=== PATIENT | male | born 1955 | race Caucasian/White ===

== ENCOUNTER → 2017-10-31 | Outpatient (CLI) | payer OTHER | LOC: BMCIMAGING 12:04 | PROVIDERS: ATTEND Emergency Medicine | DX: I82.431 Acute embolism and thrombosis of right popliteal vein (principal); I82.441 Acute embolism and thrombosis of right tibial vein ==

== ENCOUNTER → 2018-03-13 | Outpatient (CLI) | payer OTHER | LOC: FIMAGING 12:43 | PROVIDERS: ATTEND Internal Medicine | DX: M79.661 Pain in right lower leg (principal); M79.89 Other specified soft tissue disorders ==

== ENCOUNTER → 2018-03-23 | Outpatient (CLI) | payer OTHER | LOC: FIMAGING 12:30 | PROVIDERS: ATTEND Internal Medicine | DX: I82.431 Acute embolism and thrombosis of right popliteal vein (principal) ==

== ENCOUNTER → 2018-06-19 | Outpatient (CLI) | payer OTHER | LOC: FIMAGING 11:09 | PROVIDERS: ATTEND Internal Medicine | DX: I82.431 Acute embolism and thrombosis of right popliteal vein (principal) ==

== ENCOUNTER 2018-10-28 12:12 | Emergency (ER) | payer OTHER ==
[2018-10-28] MEDS ORDERED: NS 1,000 ML IV ONE (13:06)
--- NOTE | 2018-10-28 13:06 | EDPHY ---
H & P Stated Complaint: since sat, pt very fatigued, weak, photophobia, jackson Time Seen by Provider: 10/28/18 12:49 HPI/ROS: CHIEF COMPLAINT: Fatigued HISTORY OF PRESENT ILLNESS: The patient is a 63-year-old healthy man with no significant past medical history who comes to the emergency department complaining of fatigue for the last 3 days. He states that he had been doing well and feeling normal until Friday afternoon when he was having a beer with his son and he instantly felt extremely fatigued. He has slept almost constantly for the last 3 days except for 6 hr that he has been awake. He states that this is very unusual for him. He does have a lot of stress at work but nothing new. No history of depression. No recent medication changes. No history of thyroid abnormalities. No other substances. He denies feeling weak or paresthesias or focal deficits. No slurred speech. Just generally fatigued. He also complains of a mild diffuse headache that was gradual in onset Friday night in has persisted. No pain in his teeth or jaw. No runny nose sore throat etc. No ear pain or hearing changes. He does have mild photophobia and is wearing sunglasses. He is on his last day of Augmentin for a stye to his left lower eyelid that has almost completely resolved. He denies chest pain or shortness of breath. He did have a preventative examination with Cardiology 6 months ago and had a coronary CT angiogram that was unremarkable. Severity: Moderate Modifying factors: None REVIEW OF SYSTEMS: Constitutional: denies: chills, fever, recent illness, recent injury EENTM: denies: blurred vision, double vision, nose congestion Respiratory: denies: cough, shortness of breath Cardiac: denies: chest pain, irregular heart rate, lightheadedness, palpitations Gastrointestinal/Abdominal: denies: abdominal pain, diarrhea, nausea, vomiting, blood streaked stools Genitourinary: denies: dysuria, frequency, hematuria, pain Musculoskeletal: denies: joint pain, muscle pain Skin: denies: lesions, rash, jaundice, bruising Neurological: denies: headache, numbness, paresthesia, tingling, dizziness, weakness Hematologic/Lymphatic: denies: blood clots, easy bleeding, easy bruising Immunologic/allergic: denies: HIV/AIDS, transplant 10 systems reviewed and negative except as noted EXAM: GENERAL: Well-appearing, well-nourished and in no acute distress. HEAD: Atraumatic, normocephalic. EYES: Pupils equal round and reactive to light, extraocular movements intact, sclera anicteric, conjunctiva are normal. ENT: TMs normal, nares patent, oropharynx clear without exudates. Moist mucous membranes. Darci-Pen measurements 21 on the left 20 on the right. NECK: Normal range of motion, supple without lymphadenopathy or JVD. LUNGS: Breath sounds clear to auscultation bilaterally and equal. No wheezes rales or rhonchi. HEART: Regular rate and rhythm without murmurs, rubs or gallops. ABDOMEN: Soft, nontender, normoactive bowel sounds. No guarding, no rebound. No masses appreciated. BACK: No CVA tenderness, no spinal tenderness, step-offs or deformities EXTREMITIES: Normal range of motion, no pitting or edema. No clubbing or cyanosis. NEUROLOGICAL: Cranial nerves II through XII grossly intact. Normal speech, normal gait. 5/5 strength, normal movement in all extremities, normal sensation , normal reflexes PSYCH: Normal mood, normal affect. SKIN: Warm, dry, normal turgor, no visible rashes or lesions. Source: Patient Exam Limitations: No limitations - Personal History Current Tetanus Diphtheria and Acellular Pertussis (TDAP): Yes - Medical/Surgical History Hx Asthma: No Hx Chronic Respiratory Disease: No Hx Diabetes: No Hx Cardiac Disease: No Hx Renal Disease: No Hx Cirrhosis: No Hx Alcoholism: No Hx HIV/AIDS: No Hx Splenectomy or Spleen Trauma: No Other PMH: glaucoma, high cholesterol - Family History Significant Family History: No pertinent family hx - Social History Smoking Status: Never smoked Alcohol Use: Sober Drug Use: None Constitutional: Initial Vital Signs Temperature (C) 36.9 C 10/28/18 12:15 Heart Rate 68 10/28/18 12:15 Respiratory Rate 16 10/28/18 12:15 Blood Pressure 167/126 H 10/28/18 12:15 O2 Sat (%) 97 10/28/18 12:15 O2 Delivery Mode Room Air Allergies/Adverse Reactions: No Known Allergies Allergy (Verified 10/28/18 12:20) Medical Decision Making - Diagnostics EKG Interpretation: An EKG obtained and was read and documented in trace view. Please see trace view for full reading and report. Sinus rhythm, no acute ischemic changes Imaging Results: Imaging Impressions Head CT 10/28/18 13:06 Impression: 1. Normal CT brain without contrast. 2. Consider MRI of the brain, if there is continued clinical concern. Findings and recommendations discussed with Emergency Department physician, VALERIANO PATRICIA at 14:05 hour, 10/28/2018. Final report concurs with initial preliminary interpretation. Imaging: Discussed imaging studies w/ oiler bander Radiologist ED Course/Re-evaluation: 2:45 p.m. the patient is unchanged. Still feels fatigued. No focal deficits. Lab work, CT, EKG etc are all reassuring. I suspect that he has a mild virus that is making it fatigued. He declines further workup or observation. He will follow up with his primary DrEliz Cunha. Discussed indications for returning to the emergency department. Differential Diagnosis: Partial list of the Differential diagnosis considered include but were not limited to; fatigue, depression and although unlikely based on the history and physical exam, I also considered mononucleosis, CVA, CHF, arrhythmia, electrolyte abnormality, thyroid abnormality. I discussed these differential diagnoses and the plan with the patient as well as the usual and expected course. The patient understands that the diagnosis is provisional and that in medicine we are not always correct and that further workup is often warranted. Usual and customary warnings were given. All of the patient's questions were answered. The patient was instructed to return to the emergency department should the symptoms at all worsen or return, otherwise to followup with the physician as we discussed. - Data Points Laboratory Results: Laboratory Results 10/28/18 12:45 10/28/18 12:45 10/28/18 10/28/18 10/28/18 13:22 13:20 12:45 WBC RBC Hgb Hct MCV MCH MCHC RDW Plt Count MPV Neut % (Auto) Lymph % (Auto) [place] % (Auto) Eos % (Auto) Baso % (Auto) Nucleat RBC Rel Count Absolute Neuts (auto) Absolute Lymphs (auto) Absolute Monos (auto) Absolute Eos (auto) Absolute Basos (auto) Absolute Nucleated RBC Immature Gran % Immature Gran # Sodium 139 mEq/L mEq/L (135-145) Potassium 4.1 mEq/L mEq/L (3.5-5.2) Chloride 106 mEq/L mEq/L (97-110) Carbon Dioxide 22 mEq/l mEq/l (22-31) Anion Gap 11 mEq/L mEq/L (6-14) BUN 19 mg/dL mg/dL (7-23) Creatinine 0.9 mg/dL mg/dL (0.7-1.3) Estimated GFR > 60 Glucose 110 mg/dL H mg/dL (70-100) Calcium 8.9 mg/dL mg/dL (8.5-10.4) Total Bilirubin 0.6 mg/dL mg/dL (0.1-1.4) Conjugated Bilirubin 0.0 mg/dL mg/dL (0.0-0.5) Unconjugated Bilirubin 0.6 mg/dL mg/dL (0.0-1.1) AST 27 IU/L IU/L (17-59) ALT 55 IU/L IU/L (21-72) Alkaline Phosphatase 45 IU/L IU/L (38-126) POC Troponin I 0.00 ng/mL ng/mL (0.00-0.08) Total Protein 6.7 g/dL g/dL (6.3-8.2) Albumin 4.3 g/dL g/dL (3.5-5.0) TSH 3.030 uIU/mL uIU/mL (0.465-4.680) Urine Color PALE YELLOW Urine Appearance CLEAR Urine pH 5.0 (5.0-7.5) Ur Specific [place] 1.005 (1.002-1.030) Urine Protein NEGATIVE (NEGATIVE) Urine Ketones NEGATIVE (NEGATIVE) Urine Blood NEGATIVE (NEGATIVE) Urine Nitrate NEGATIVE (NEGATIVE) Urine Bilirubin NEGATIVE (NEGATIVE) Urine Urobilinogen NEGATIVE EU EU (0.2-1.0) Ur Leukocyte Esterase NEGATIVE (NEGATIVE) Urine RBC 1-3 /hpf /hpf (0-3) Urine WBC 0-1 /hpf /hpf (0-3) Ur Epithelial Cells NONE SEEN /lpf /lpf (NONE-1+) Urine Glucose NEGATIVE (NEGATIVE) 10/28/18 12:45 WBC 6.09 10^3/uL 10^3/uL (3.80-9.50) RBC 4.72 10^6/uL 10^6/uL (4.40-6.38) Hgb 15.2 g/dL g/dL (13.7-17.5) Hct 44.5 % % (40.0-51.0) MCV 94.3 fL fL (81.5-99.8) MCH 32.2 pg pg (27.9-34.1) MCHC 34.2 g/dL g/dL (32.4-36.7) RDW 12.3 % % (11.5-15.2) Plt Count 208 10^3/uL 10^3/uL (150-400) MPV 10.7 fL fL (8.7-11.7) Neut % (Auto) 56.0 % % (39.3-74.2) Lymph % (Auto) 29.7 % % (15.0-45.0) [place] % (Auto) 9.9 % % (4.5-13.0) Eos % (Auto) 3.6 % % (0.6-7.6) Baso % (Auto) 0.5 % % (0.3-1.7) Nucleat RBC Rel Count 0.0 % % (0.0-0.2) Absolute Neuts (auto) 3.41 10^3/uL 10^3/uL (1.70-6.50) Absolute Lymphs (auto) 1.81 10^3/uL 10^3/uL (1.00-3.00) Absolute Monos (auto) 0.60 10^3/uL 10^3/uL (0.30-0.80) Absolute Eos (auto) 0.22 10^3/uL 10^3/uL (0.03-0.40) Absolute Basos (auto) 0.03 10^3/uL 10^3/uL (0.02-0.10) Absolute Nucleated RBC 0.00 10^3/uL 10^3/uL (0-0.01) Immature Gran % 0.3 % % (0.0-1.1) Immature Gran # 0.02 10^3/uL 10^3/uL (0.00-0.10) Sodium Potassium Chloride Carbon Dioxide Anion Gap BUN Creatinine Estimated GFR Glucose Calcium Total Bilirubin Conjugated Bilirubin Unconjugated Bilirubin AST ALT Alkaline Phosphatase POC Troponin I Total Protein Albumin TSH Urine Color Urine Appearance Urine pH Ur Specific [place] Urine Protein Urine Ketones Urine Blood Urine Nitrate Urine Bilirubin Urine Urobilinogen Ur Leukocyte Esterase Urine RBC Urine WBC Ur Epithelial Cells Urine Glucose Medications Given: Discontinued Medications Sodium Chloride (Ns) 1,000 mls @ 0 mls/hr IV ONCE ONE; Wide Open PRN Reason: Protocol Stop: 10/28/18 13:07 Last Admin: 10/28/18 13:15 Dose: 1,000 mls Point of Care Test Results: Chemistry 10/28/18 13:22 POC Troponin I 0.00 ng/mL ng/mL (0.00-0.08) Departure - Departure Disposition: Home, Routine, Self-Care Clinical Impression: Fatigue Qualifiers: Fatigue type: unspecified Qualified Code(s): R53.83 - Other fatigue Condition: Fair Instructions: Fatigue (ED) Referrals: Steve Garay MD [Primary Care Provider] - As per Instructions Diamond Cunha MD [Medical Doctor] - 2-3 days, if not improved
[2018-10-28 13:14] LABS: PLATELET COUNT 208 10^3/uL (150-400)
--- NOTE | 2018-10-28 13:26 | CPEKG ---
Test Reason : OPEN Blood Pressure : / mmHG Vent. Rate : 055 BPM Atrial Rate : 055 BPM P-R Int : 147 ms QRS Dur : 094 ms QT Int : 424 ms P-R-T Axes : 035 015 016 degrees QTc Int : 406 ms Sinus rhythm Confirmed by Valeriano Patricia ([id number]) on 10/28/2018 1:26:11 PM Referred By: VALERIANO PATRICIA Confirmed By:Valeriano Patricia
[2018-10-28 14:52] VITALS: BP 146/90
== END 2018-10-28 14:57 | disposition home or self-care (01) ==
DX: R53.83 Other fatigue (principal); E86.9 Volume depletion, unspecified
CPT/HCPCS: 84484-ER

== ENCOUNTER 2018-11-03 15:21 | Emergency (ER) | payer OTHER ==
[2018-11-03] MEDS ORDERED: NS 1,000 ML IV ONE (15:40)
--- NOTE | 2018-11-03 15:46 | EDPHY ---
H & P Stated Complaint: cough, fatigue Time Seen by Provider: 11/03/18 15:33 HPI/ROS: CHIEF COMPLAINT: Cough HISTORY OF PRESENT ILLNESS: Patient is a 63-year-old man who I saw last week for fatigue and sleepiness. Lab work and head CT were reassuring. He states that he began feeling better and was able to play golf on Friday but that made him feel significantly worse on Friday. Since then he has been coughing and has had a low-grade fever of 99. No sinus congestion. No sore throat but he does feel that he has bad breath. His cough has been nonproductive. No abdominal pain. No nausea vomiting or GI symptoms. No headache. He does have a slight rash that he thinks is from taking Augmentin which he began last week for a stye in his right eye. The patient is worried about a PE because he had a DVT few years ago in his right leg and has been having some tightness behind his right knee over last few days. Severity: Moderate Modifying factors: Worsened by exertion REVIEW OF SYSTEMS: Constitutional: See HPI EENTM: denies: blurred vision, double vision, nose congestion Respiratory: See HPI Cardiac: denies: chest pain, irregular heart rate, lightheadedness, palpitations Gastrointestinal/Abdominal: denies: abdominal pain, diarrhea, nausea, vomiting, blood streaked stools Genitourinary: denies: dysuria, frequency, hematuria, pain Musculoskeletal: denies: joint pain, muscle pain Skin: denies: lesions, rash, jaundice, bruising Neurological: denies: headache, numbness, paresthesia, tingling, dizziness, weakness Hematologic/Lymphatic: denies: blood clots, easy bleeding, easy bruising Immunologic/allergic: denies: HIV/AIDS, transplant 10 systems reviewed and negative except as noted EXAM: GENERAL: Well-appearing, well-nourished and in no acute distress. HEAD: Atraumatic, normocephalic. EYES: Pupils equal round and reactive to light, extraocular movements intact, sclera anicteric, conjunctiva are normal. ENT: TMs normal, nares patent, oropharynx clear without exudates. Moist mucous membranes. NECK: Normal range of motion, supple without lymphadenopathy or JVD. LUNGS: Breath sounds clear to auscultation bilaterally and equal. No wheezes rales or rhonchi. HEART: Regular rate and rhythm without murmurs, rubs or gallops. ABDOMEN: Soft, nontender, normoactive bowel sounds. No guarding, no rebound. No masses appreciated. BACK: No CVA tenderness, no spinal tenderness, step-offs or deformities EXTREMITIES: Normal range of motion, no pitting or edema. No clubbing or cyanosis. NEUROLOGICAL: Cranial nerves II through XII grossly intact. Normal speech, normal gait. 5/5 strength, normal movement in all extremities, normal sensation , normal reflexes PSYCH: Normal mood, normal affect. SKIN: Warm, dry, normal turgor, no visible rashes or lesions. Source: Patient Exam Limitations: No limitations - Personal History Current Tetanus/Diphtheria Vaccine: Yes Current Tetanus Diphtheria and Acellular Pertussis (TDAP): Yes - Medical/Surgical History Hx Asthma: No Hx Chronic Respiratory Disease: No Hx Diabetes: No Hx Cardiac Disease: No Hx Renal Disease: No Hx Cirrhosis: No Hx Alcoholism: No Hx HIV/AIDS: No Hx Splenectomy or Spleen Trauma: No Other PMH: glaucoma, high cholesterol - Family History Significant Family History: No pertinent family hx - Social History Smoking Status: Never smoked Alcohol Use: None Constitutional: Initial Vital Signs Temperature (C) 37.4 C 11/03/18 15:25 Heart Rate 64 11/03/18 15:25 Respiratory Rate 16 11/03/18 15:25 Blood Pressure 160/99 H 11/03/18 15:25 O2 Sat (%) 95 11/03/18 15:25 O2 Delivery Mode Room Air Allergies/Adverse Reactions: amoxicillin [From Augmentin] Allergy (Verified 11/03/18 15:25) clavulanic acid [From Augmentin] Allergy (Verified 11/03/18 15:25) Home Medications: Medication Instructions Recorded Atorvastatin Calcium 11/03/18 Vyzulta 11/03/18 Medical Decision Making - Diagnostics EKG Interpretation: An EKG obtained and was read and documented in trace view. Please see trace view for full reading and report. Sinus rhythm, no acute ischemic change Imaging Results: Imaging Impressions Chest X-Ray 11/03/18 15:41 Impression: Clear lungs. No acute process. Extremity Venous Study 11/03/18 15:42 Impression: There is significantly improved short-segment nonocclusive thrombus identified in the popliteal vein. There is no caudal or cephalad migration of clot, compared to 06/19/2018. Findings were discussed with VALERIANO PATRICIA MD at 16:42, on 11/03/2018. Imaging: Discussed imaging studies w/ call or contact centre manager Radiologist ED Course/Re-evaluation: 5:00 p.m. We discussed the lab EKG and imaging results which are very reassuring. He does have some chronic DVT but smaller than in May. He is no longer anticoagulated. His D-dimer is negative which emphasizes the fact that this is likely chronic clot. X-rays reassuring. Discussed options. The patient does not wish to start antibiotics. He recently finished Augmentin last week. This is likely viral infection. I do not see bronchitis changes on his x-ray. He states that he felt slightly lightheaded prior to right but after receiving IV fluids he feels much better. We agreed to flu swab his nose but he does not wish to wait for the results. I will call him if it is positive. We discussed continued supportive care at home. He feels comfortable with this plan and declines further workup or testing 6:20 p.m. left a message on the patient's phone about his flu swab being negative. Differential Diagnosis: Partial list of the Differential diagnosis considered include but were not limited to; dehydration, electrolyte abnormality viral syndrome, influenza, bronchitis and although unlikely based on the history and physical exam, I also considered pneumonia, sepsis, acute coronary disease, PE. I discussed these differential diagnoses and the plan with the patient as well as the usual and expected course. The patient understands that the diagnosis is provisional and that in medicine we are not always correct and that further workup is often warranted. Usual and customary warnings were given. All of the patient's questions were answered. The patient was instructed to return to the emergency department should the symptoms at all worsen or return, otherwise to followup with the physician as we discussed. - Data Points Laboratory Results: Laboratory Results 11/03/18 15:25 11/03/18 15:25 11/03/18 11/03/18 11/03/18 17:00 15:51 15:25 WBC RBC Hgb Hct MCV MCH MCHC RDW Plt Count MPV Neut % (Auto) Lymph % (Auto) [place] % (Auto) Eos % (Auto) Baso % (Auto) Nucleat RBC Rel Count Absolute Neuts (auto) Absolute Lymphs (auto) Absolute Monos (auto) Absolute Eos (auto) Absolute Basos (auto) Absolute Nucleated RBC Immature Gran % Immature Gran # D-Dimer 0.37 ug/mLFEU ug/mLFEU (0.00-0.50) Sodium Potassium Chloride Carbon Dioxide Anion Gap BUN Creatinine Estimated GFR Glucose Calcium POC Troponin I 0.00 ng/mL ng/mL (0.00-0.08) Nasal Influenza A PCR NEGATIVE FOR FLU A (NEGATIVE) Nasal Influenza B PCR NEGATIVE FOR FLU B (NEGATIVE) 11/03/18 11/03/18 15:25 15:25 WBC 6.55 10^3/uL 10^3/uL (3.80-9.50) RBC 4.76 10^6/uL 10^6/uL (4.40-6.38) Hgb 15.2 g/dL g/dL (13.7-17.5) Hct 43.5 % % (40.0-51.0) MCV 91.4 fL fL (81.5-99.8) MCH 31.9 pg pg (27.9-34.1) MCHC 34.9 g/dL g/dL (32.4-36.7) RDW 12.1 % % (11.5-15.2) Plt Count 245 10^3/uL 10^3/uL (150-400) MPV 10.5 fL fL (8.7-11.7) Neut % (Auto) 57.1 % % (39.3-74.2) Lymph % (Auto) 31.3 % % (15.0-45.0) [place] % (Auto) 8.1 % % (4.5-13.0) Eos % (Auto) 2.6 % % (0.6-7.6) Baso % (Auto) 0.6 % % (0.3-1.7) Nucleat RBC Rel Count 0.0 % % (0.0-0.2) Absolute Neuts (auto) 3.74 10^3/uL 10^3/uL (1.70-6.50) Absolute Lymphs (auto) 2.05 10^3/uL 10^3/uL (1.00-3.00) Absolute Monos (auto) 0.53 10^3/uL 10^3/uL (0.30-0.80) Absolute Eos (auto) 0.17 10^3/uL 10^3/uL (0.03-0.40) Absolute Basos (auto) 0.04 10^3/uL 10^3/uL (0.02-0.10) Absolute Nucleated RBC 0.00 10^3/uL 10^3/uL (0-0.01) Immature Gran % 0.3 % % (0.0-1.1) Immature Gran # 0.02 10^3/uL 10^3/uL (0.00-0.10) D-Dimer Sodium 132 mEq/L L mEq/L (135-145) Potassium 4.2 mEq/L mEq/L (3.5-5.2) Chloride 100 mEq/L mEq/L (97-110) Carbon Dioxide 22 mEq/l mEq/l (22-31) Anion Gap 10 mEq/L mEq/L (6-14) BUN 20 mg/dL mg/dL (7-23) Creatinine 0.9 mg/dL mg/dL (0.7-1.3) Estimated GFR > 60 Glucose 102 mg/dL H mg/dL (70-100) Calcium 9.3 mg/dL mg/dL (8.5-10.4) POC Troponin I Nasal Influenza A PCR Nasal Influenza B PCR Medications Given: Discontinued Medications Sodium Chloride (Ns) 1,000 mls @ 0 mls/hr IV EDNOW ONE; Wide Open PRN Reason: Protocol Stop: 11/03/18 15:41 Last Admin: 11/03/18 15:52 Dose: 1,000 mls Point of Care Test Results: Chemistry 11/03/18 15:51 POC Troponin I 0.00 ng/mL ng/mL (0.00-0.08) Departure - Departure Disposition: Home, Routine, Self-Care Clinical Impression: Cough Condition: Fair Instructions: Acute Cough (ED) Referrals: NONE *PRIMARY CARE P,. [Primary Care Provider] - As per Instructions Steve Garay MD [Medical Doctor] - 2-3 days, if not improved
[2018-11-03 16:07] LABS: PLATELET COUNT 245 10^3/uL (150-400)
--- NOTE | 2018-11-03 16:22 | CPEKG ---
Test Reason : OPEN Blood Pressure : / mmHG Vent. Rate : 059 BPM Atrial Rate : 060 BPM P-R Int : 145 ms QRS Dur : 096 ms QT Int : 418 ms P-R-T Axes : 042 015 020 degrees QTc Int : 414 ms Sinus rhythm Confirmed by Valeriano Patricia ([id number]) on 11/03/2018 4:21:58 PM Referred By: VALERIANO PATRICIA Confirmed By:Valeriano Patricia
[2018-11-03 16:36] VITALS: BP 149/89
== END 2018-11-03 17:16 | disposition home or self-care (01) ==
DX: R05 Cough (principal); E78.00 Pure hypercholesterolemia, unspecified; E86.9 Volume depletion, unspecified; Z79.899 Other long term (current) drug therapy; Z86.711 Personal history of pulmonary embolism
CPT/HCPCS: 84484-ER